=== PATIENT | female | born 1945 | race Caucasian/White ===

== ENCOUNTER 2016-12-23 13:31 | Observation (INO) | payer MEDICARE, OTHER ==
--- NOTE | ~2016-12-23 | HP ---
History And Physical [place] [id number] [facility] [place]. [address] NAME: KING LINDQUIST : 41 STATUS : ADM Phil PAT#: [id number] AGE: 71 ADM/REG DATE : 12/23/16 MR#: [id number] REPORT SERV DATE: 12/23/16 DICTATED BY: ELISA LUONG DATE: 12/23/16 REPORT STATUS : Draft TRANSCRIBED BY: MODNicola DATE: 12/23/16 DATE OF ADMISSION: 12/23/2016 REASON FOR ADMISSION: Chest pain. HISTORY OF PRESENT ILLNESS: This is a 71-year-old white female, who was at Dr. Bowden's office preparing to get her Remicade infusion for rheumatoid arthritis. She was having some left-sided chest pain. It had been going on for two days. It was associated with shortness of breath. There have been no cough, fever, or chills. She does have a longstanding history of atherosclerotic cardiovascular disease. She had a CABG in 2010, had cardiac stenting in September 2015. She was followed by Dr. Layton. She has had no recent evaluation other than echocardiogram for mitral regurgitation. She has had no increasing shortness of breath but she does feel somewhat short of breath and has had some wheezing prior to coming to the emergency room. Her chest pain has been going on for the last two days, a deep aching pain it actually comes and goes. It does not seem to be related to exertion and she does get the pain at rest as well. Sublingual nitroglycerin was not given in the emergency room. She does have Nitrol paste on now. The pain is somewhat better after breathing treatment. The wheezing has abated after the breathing treatment. She is being admitted to observation for evaluation of possible atherosclerotic cardiovascular disease. In the emergency room, she was treated with Solu-Medrol 125 mg, aspirin 81 mg, and the Nitrol paste has just been added as she is being evaluated here. Her troponin level was less than 0.02 and her EKG showed sinus rhythm with diffuse nonspecific ST and T-wave changes with the ST segments grouping in the inferior and lateral leads and low voltage across the precordial leads as well. She is admitted to Dr. Cunningham for observation. PAST MEDICAL HISTORY: She had a spider bite with swelling of her left arm and was found to have MRSA cellulitis from this. She has numerous doctors for the following medical problems: Dr. Miranda for her asthma. Dr. Bowden for her rheumatoid arthritis. Dr. Estuardo Salamnaca for her rosacea and other dermatologic problems. Dr. Main for her irritable bowel syndrome. Dr. Platt for her bowel adhesions. Dr. Layton for her atherosclerotic cardiovascular disease and Dr. Forrest for general medical care. 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 Oshea at [facility] for this. 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 She has had a partial colon resection by Dr. Platt because of the bowel obstruction History And Physical [address] [place]. [address] NAME: KING LINDQUIST : 43 STATUS : ADM Phil PAT#: [id number] AGE: 71 ADM/REG DATE : 12/23/16 MR#: [id number] REPORT SERV DATE: 12/23/16 DICTATED BY: ELISA LUONG DATE: 12/23/16 REPORT STATUS : Draft TRANSCRIBED BY: PHI DATE: 12/23/16 and had recurrent bowel obstructions. Abdominal hysterectomy. Home medications are being identified at this time. She is on Remicade about every six weeks. SOCIAL HISTORY: She is . She grew up in [place]. Lives in [place]. Attends [employer]. She does not smoke cigarettes or take any alcohol. She remarks about her healthy lifestyle and avoidance of health problems in the past and is somewhat concerned that she has had so many health issues having lived so cleanly. FAMILY HISTORY: She has monstrously high cholesterol she says, had 7 brothers and sisters, none of them had any heart disease in the past. Her mother had diabetes and coronary artery disease. Her father had coronary artery disease. She has a sibling with Parkinson's disease and chronic lymphocytic leukemia. REVIEW OF SYSTEMS: She has a deep aching pain in the left anterior chest. No shortness of breath. The patient is not uncomfortable, has no cough, fever, chills, no dysphagia. No melena, hematemesis, fits, seizures, convulsions, nausea, vomiting, or diarrhea. No unilateral weakness. She has no rash at this point. The remainder of the review of systems is negative. PHYSICAL EXAMINATION: GENERAL: White female with artificially darkened hair, in no acute distress, in a raegan indifference to the degree of chest pain has been assumed. VITAL SIGNS: Her blood pressure was 140/70 with a heart rate 70, respiratory rate 16, and afebrile. HEENT: EOMI. Sclerae clear. Conjunctivae pink. NECK: No bruit without any JVD. CHEST: Clear to A and P. HEART: Regular S1, S2 without murmur, gallop, or click. ABDOMEN: Soft. Nontender. Bowel sounds positive. No HSM. EXTREMITIES: Have no edema. Distal pulses are intact in the dorsalis pedis and posterior tibial. NEUROLOGIC: She withdraws to plantar stimulation. Tank Tester is equal and symmetric bilaterally. Coordination intact. She has no tremor. She is symmetric and equal neurologically bilaterally. LYMPHATICS: There is no lymphatics palpable. She has no Raynaud's phenomenon now. She does have good distal pulses. BREASTS: Grossly without mass. Pharynx is clear. LABORATORY DATA: The sodium 141, potassium 3.8, creatinine 0.9, BUN 8, calcium 8.9, and magnesium 2.2. Troponin less than 0.02. Her hemoglobin was 13.3, hematocrit 39.9, platelets were 227,000. White count 84,000. INR 1.0. Portable chest x-ray shows stable appearance of the chest since the prior examination with a history of mini sternotomy but no acute processes radiographically. History And Physical [address] [address] NAME: KING LINDQUIST : 43 STATUS : ADM Phil PAT#: [id number] AGE: 71 ADM/REG DATE : 12/23/16 MR#: [id number] REPORT SERV DATE: 12/23/16 DICTATED BY: ELISA LUONG DATE: 12/23/16 REPORT STATUS : Draft TRANSCRIBED BY: PHI DATE: 12/23/16 Her EKG does have diffuse nonspecific ST and T-wave changes. ASSESSMENT: 1. Chest pain reminiscent to her of the previous angina pectoris prior to the cardiac stenting and prior to her CABG. We will consult Dr. Layton as she is high risk with previous history of ASCVD and failure of the bypass with stenting now approximately 18 months ago. 2. History of asthma, responsive to medications, IV Solu-Medrol, and the patient has cleared her lungs here in the emergency room. 3. 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 4. ASCVD status post CABG. 5. History of MRSA cellulitis of her left arm. 6. Rheumatoid arthritis. 7. History of Raynaud's phenomenon. 8. Irritable bowel syndrome. 9. History of asthma. 10.History of bowel obstruction from adhesions. PLAN: Continue the aerosols. She does not buy her asthma medication because of the expense of them. She has been reluctant to return back to the hospital with chest pain because the last time she was in the hospital, it caused her some blank out of the pocket for her admission and stenting. She blames improper coding for it. We will plan to draw serial troponins. Consider a nuclear medicine stress test versus repeat coronary angiography because of the significant history of atherosclerotic cardiovascular disease. MARIN/PHI Elisa Luong M.D. / [id number] CC: Christian Cunningham Jr, MD Todd A Levin, M.D. Clay Pickard, M.D. Andrew Rittenberry Jr., M.D. Jamari Layton M.D. Shirlene Branch M.D. Fabio Jean Jr., M.D.
--- NOTE | ~2016-12-23 | CN ---
Consultation Report [facility] [address] [place]. [address] NAME: KING LINDQUIST OCHOA : 41 STATUS : ADM Phil PAT#: [id number] AGE: 71 ADM/REG DATE : 12/23/16 MR#: [id number] REPORT SERV DATE: 12/24/16 DICTATED BY: CAITLIN COLE DATE: 12/23/16 REPORT STATUS : Draft TRANSCRIBED BY: MODL DATE: 12/23/16 CARDIOLOGY CONSULT DATE OF CONSULTATION: REFERRING REASON: Chest pain. HISTORY OF PRESENT ILLNESS: This is a pleasant 71 years old white female, well known to Dr. Jamari Layton from [facility] with known CAD and history of two-vessel CABG in 2010 with last coronary arteriogram in 09/2015 with drug-eluting stent into the RCA, but patent RUSS to LAD was identified. She has a history of preserved systolic function. The patient likely has some chronic angina, has been on ranolazine with the dose increased to 1 g twice a day about six months ago. The patient reported that despite that, she continued to have, last three to four months, constant left-sided chest pressure, which is worsening with activity. She also has two to three months of dry cough and shortness of breath. She was admitted to Hospitalist Service. She has been given steroids. Her shortness of breath improved, but she still has intermittent poorly defined left-sided chest pain. Her first enzymes are negative. Electrocardiogram, some nonspecific ST-segment changes. The patient has also seizure disorder, but last seizure was documented in August. She is walking without any support. She has some mild underlying anxiety also. She denies any lower extremity edema, syncope, or other symptoms. REVIEW OF SYSTEMS: The rest of review of systems is negative. PAST MEDICAL HISTORY: 1. Coronary artery disease, history of two-vessel CABG in 2010. 2. SILAS into the RCA placed in 09/2015 with patent RUSS to LAD with preserved systolic function. EF of 70%. 3. Mild carotid artery disease, nonobstructive. 4. Chronic pain. 5. Possible chronic angina. 6. Remote history of TIA. 7. Peripheral artery disease. 8. History of seizure disorder, followed by [facility], with last seizure in 08/2016. SOCIAL HISTORY: The patient is . Denies smoking, drinking alcohol, or using street drugs. FAMILY HISTORY: Negative for sudden cardiac , premature coronary artery disease in family. ALLERGIES: PENICILLIN, SULFA, LISINOPRIL, DIPYRIDAMOLE, CODEINE DOXYCYCLINE, TRAMADOL, Consultation Report [place] [address] [place]. [address] NAME: KING LINDQUIST : 41 STATUS : ADM Phil PAT#: [id number] AGE: 71 ADM/REG DATE : 12/23/16 MR#: [id number] REPORT SERV DATE: 12/24/16 DICTATED BY: CAITLIN COLE DATE: 12/23/16 REPORT STATUS : Draft TRANSCRIBED BY: PHI DATE: 12/23/16 LATEX, TAPENTADOL. HOME MEDICATIONS: Tylenol 1 g twice a day, aspirin 81 mg once a day, Coreg 3.125 mg twice a day, coenzyme Q10, Colace 100 mg twice a day, Estrace 1 mg once a day, Elizabeth as needed, Neurontin 200 mg once a day, Remicade every six weeks, Keppra 750 mg twice a day, multivitamin, nortriptyline 20 mg once a day, Protonix 40 mg once a day, Ranexa 1 g twice a day. PHYSICAL EXAMINATION: GENERAL: No acute distress. VITAL SIGNS: Blood pressure 150/ , heart rate 67 and regular. HEENT - Pupils reactive to light and accommodation. Moist mucosa membrane. NECK: No JVD. Normal carotid upstroke. No carotid bruits. LUNGS: Clear to auscultation bilaterally. Normal inspiratory efforts. COR: Normal S1, S2. No S3 or S4. No significant rub or murmurs. ABD: Soft, nontender, nondistended. EXT: No edema. Pedal pulses strong and equal bilaterally. SKIN: Warm with normal turgor. MS - No kyphosis. NEURO/PSY - Alert and oriented. Nonfocal. DATA: Electrolytes and CBC within normal limits. Chest x-ray, no acute pathology. Troponin x1 is negative. Electrocardiogram revealed normal sinus rhythm 65 beats per minute with nonspecific ST-segment in anterolateral leads. ASSESSMENT AND PLAN: 1. Chest pain of unclear etiology with known coronary artery disease. 2. Possible asthma exacerbation with chronic dyspnea. a. The patient has known coronary artery disease, possible chronic angina with some worsening exertional chest pain over the last several months. So far, there is no evidence of acute coronary syndrome. We will closely follow her cardiac enzymes and electrocardiogram. Likely, she may require nuclear cardiac stress test after she will be seen by Dr. Layton in the morning. We will continue current dose of Ranexa. She has drug-eluting stent into the RCA in 09/2015. Dr. Layton will see the patient in the morning. YEVGENIY/PHI Caitlin Cole M.D. / [id number] Consultation Report [address] [address] NAME: KING LINDQUIST : 41 STATUS : ADM Phil PAT#: [id number] AGE: 71 ADM/REG DATE : 12/23/16 MR#: [id number] REPORT SERV DATE: 12/24/16 DICTATED BY: CAITLIN COLE DATE: 12/23/16 REPORT STATUS : Draft TRANSCRIBED BY: PHI DATE: 12/23/16 CC: Christian Cunningham Jr, MD
--- NOTE | ~2016-12-23 | DS ---
Discharge Summary [facility] [address] [place]. [address] NAME: KING LINDQUIST : 41 STATUS : DIS Phil PAT#: [id number] AGE: 71 ADM/REG DATE : 12/23/16 MR#: [id number] REPORT SERV DATE: 12/25/16 DICTATED BY: JR. CUNNINGHAM WILLIAM JOHN DATE: 12/24/16 REPORT STATUS : Draft TRANSCRIBED BY: PHI DATE: 12/24/16 ADMISSION DATE: 12/23/2016 DISCHARGE DATE: 12/24/2016 DISCHARGE DIAGNOSES: Include: 1. Noncardiac chest pain. 2. Shortness of breath. 3. Asthma exacerbation, mild. 4. Berne autoimmune disease secondary to tick bite. 5. Rheumatoid arthritis with Raynaud phenomenon. 6. Irritable bowel syndrome. 7. History of small-bowel obstruction with secondary adhesions. 8. Fibromyalgia. OPERATIONS, PROCEDURES, AND TREATMENTS: Include: 1. Cardiac catheterization done 12/24/2016 with findings of a single vessel flow limiting coronary artery disease involving the LAD with a patent RUSS to LAD graft. 2. Left circumflex without significant disease. 3. [place] right coronary artery with stents noted from ostia to proximal portion of the vessel, moderate non-flow limiting focal in-stent restenosis within the mid portion stent. 4. Known chronic total occlusion of saphenous vein, the right coronary stent, the [place] RCA stented inpatient. There was normal left ventricular systolic function. Ejection fraction of 60%. 5. Chest x-ray done 12/23/2016, which showed stable appearance of median sternotomy changes. No acute changes. DISCHARGE MEDICATIONS: Include: 1. Aspirin 81 mg orally daily. 2. Lipitor 80 mg orally daily. 3. Coreg 3.125 twice a day. 4. Vitamin D3 of 6000 units daily. 5. CoQ 100 mg orally daily. 6. Remicade infusions. 7. Colace 100 twice a day. 8. Neurontin 200 daily. 9. Keppra 750 twice a day. 10.Multivitamin tablet orally daily. 11.Nortriptyline 20 at the hour of sleep. 12.Protonix 40 daily. 13.Ranexa 1000 mg twice a day. 14.Prednisone 20 mg daily. 15.Combivent two puffs every four hours while awake. 16.Dulera 100/5 two puffs b.i.d. HOSPITAL COURSE: The patient is a 71-year-old female, sent from Dr. Bowden's Discharge Summary [address] [address] NAME: KING LINDQUIST : 41 STATUS : DIS Phil PAT#: [id number] AGE: 71 ADM/REG DATE : 12/23/16 MR#: [id number] REPORT SERV DATE: 12/25/16 DICTATED BY: JR. CUNNINGHAM WILLIAM JOHN DATE: 12/24/16 REPORT STATUS : Draft TRANSCRIBED BY: PHI DATE: 12/24/16 office as she was preparing to get a Remicade infusion, started having left-sided chest pain ongoing for one to two days associated with shortness of breath. No cough, fevers, or chills. She has long-standing history of atherosclerotic disease and had cardiac stenting in [address] Layton. She was sent to the emergency room for further care. Please see Dr. Rich's excellent dictated history and physical for further details. The patient was seen in consultation by Dr. Bowman of Cardiology. Recommendation was to follow cardiac enzymes, which were negative. Unfortunately, her chest pain and shortness of breath were continued. She underwent cardiac catheterization with details as above. No culprit lesion was located. The patient's chest pain had largely resolved by the time I saw her in late afternoon, and she felt she was stable for discharge. The patient did complain of shortness of breath. She said she had trouble with feeling like she got a full breath in. On exam, she had end inspiratory wheezing which was faint. We discussed asthma/COPD as the cause of her feeling of shortness of breath. The patient desired discharge home. She was on room air. Therefore, we added Dulera and increased the short-acting bronchodilator dosage. We will set the patient up for outpatient followup with Pulmonary Medicine, Dr. Owens or Dr. Viera. For discharge exam and laboratory, please see daily progress note. DISCHARGE DIET: Cardiac diet. ACTIVITY: As tolerated. DOMONIQUE/PHI Christian Cunningham Jr, MD / [id number] CC: Christian Cunningham Jr, MD Annesofie Dubeck-Brooks, M.D.
[2016-12-23 12:49] LABS: BASOPHILS 0.2 %; BASOPHILS ABSOLUTE 0.02 10/3/uL (0.0-0.16); EOSINOPHILS 0.9 %; EOSINOPHILS ABSOLUTE 0.08 10/3/uL (0.0-0.53); ER CBC TAT 0 Hrs 05 Mins; HEMATOCRIT 39.9 % (36.0-48.0); HEMOGLOBIN 13.3 g/dL (12.0-16.0); IMMATURE GRANULOCYTES 0.5 %; IMMATURE GRANULOCYTES ABSOLUTE 0.04 10/3/uL (0.0-0.11); LYMPHOCYTES 43.1 %; LYMPHOCYTES ABSOLUTE 3.64 10/3/uL (0.67-4.30); MEAN CORPUS HGB CONC 33.3 g/dL (32.0-36.0); MEAN CORPUSCULAR HEMOGLOB 31.9 pg (26.0-34.0); MEAN PLATELET VOLUME 9.3 fL (9.2-13.0); MONOCYTES 8.6 %; MONOCYTES ABSOLUTE 0.73 10/3/uL (0.21-1.20); NEUTROPHILS 46.7 %; NEUTROPHILS ABSOLUTE 3.93 10/3/uL (2.02-8.40); PLATELET COUNT 227 10/3/uL (150-400); RBC DISTRIBUTION WIDTH 12.9 % (12.0-16.0); RED CELL COUNT 4.17 10/6/uL (4.0-5.6); WHITE BLOOD CELLS 8.4 10/3/uL (4.5-10.5)
[2016-12-23 12:50] LABS: MANUAL DIFF NO %; MEAN CORPUSCULAR VOLUME 95.7 fL (80-100)
[2016-12-23 12:57] LABS: PARTIAL THROMBO TIME 32.2 SEC (22.5-37.2); PROTIME (NOT ORD) 13.5 SEC (12.0-14.5)
[2016-12-23 13:10] LABS: CALCIUM, SERUM 8.9 MG/DL (8.5-10.4); CHEST PAIN PROFILE TAT 0 Hrs 26 Mins; CHLORIDE, SERUM 109 MMOL/L (96-112); CO2 (CARBON DIOXIDE) 24 MMOL/L (24-34); GFR AFRICAN AMERICAN 74 ML/MIN (>=60); GFR NON AFRICAN AMERICAN 63 ML/MIN (>=60); GLUCOSE, SERUM 95 MG/DL (60-99); POTASSIUM, SERUM 3.8 MMOL/L (3.5-5.3); SODIUM, SERUM 141 MMOL/L (135-148); TROPONIN I <0.02 NG/ML (<0.05)
[2016-12-23 13:11] LABS: BUN (BLOOD UREA NITROGEN) 8 MG/DL (6-23)
[~2016-12-23 13:31] MED LIST: ADVAIR100 INH; ADVAIR250 INH; ALLEGRA180 PO; APRISO0.375 GM PO; ASAB PO; BELBUCA; BEN25 PO; BUPRENORPHINE 7.5 MCG TOP; BUTRANS1 EACH TOP; CENTRUM PO; CENTRUM TAB1 TAB PO; CLINDA150 PO; CO Q-10100 MG PO; CO Q-10200 MG PO; COREG3 PO; COZ50 PO; ESTRACE1 MG PO; ESTRADIOL1 MG PO; FISH-EPA1000 MG PO; ISOSORB DIN30 MG PO; KAPIDEX30 MG PO; KEPPRA250 PO; KLONO1 PO; KLOR-CON 1010 MEQ PO; L20 PO; LEVBID PO; LEVSINTAB PO; LIPITOR10 PO; MEDROLPAK4 PO; NEUR100 PO; NOR10 PO; NORCO1 TAB PO; OMEGA PO; OMNICEF300 PO; P5 PO; PLAVIX PO; PR25 PO; PROAIR HFA INH; PROVHFA INH; REMICADE IV; SINGULAIR1 PO; UCERIS9 MG PO; VITAMIN D PO; VITAMIN D31000 UNIT PO; ZANTAC 75 PO; ZYVOXPO PO
[2016-12-23] MEDS ORDERED: RANEXA1000 MG PO (14:31)
[2016-12-23] MEDS ORDERED: KEPPRA750 MG PO (14:32)
[2016-12-23] MEDS ORDERED: PROTONIX PO (14:32)
[2016-12-23] MEDS ORDERED: NOR10 PO (14:41)
[2016-12-23] MEDS ORDERED: NEUR100 PO (14:43)
[2016-12-23] MEDS ORDERED: ACET500CAP PO (14:43)
[2016-12-23] MEDS ORDERED: HALF81 PO (14:43)
[2016-12-23] MEDS ORDERED: THERGRANM PO (14:43)
[2016-12-23] MEDS ORDERED: VITAMIN D31000 UNIT PO (14:44)
[2016-12-23] MEDS ORDERED: ALLEGRA180 PO (14:44)
[2016-12-23] MEDS ORDERED: CO Q-10100 MG PO (14:44)
[2016-12-23] MEDS ORDERED: REMICADE IV (14:46)
[2016-12-23] MEDS ORDERED: DSS PO (14:46)
[2016-12-23] MEDS ORDERED: COREG3 PO (14:46)
[2016-12-23] MEDS ORDERED: ESTRACE1 MG PO (14:47)
[2016-12-24 10:15] LABS: BASOPHILS 0.1 %; BASOPHILS ABSOLUTE 0.01 10/3/uL (0.0-0.16); EOSINOPHILS 0 %; HEMATOCRIT 37.5 % (36.0-48.0); HEMOGLOBIN 12.9 g/dL (12.0-16.0); IMMATURE GRANULOCYTES 0.6 %; IMMATURE GRANULOCYTES ABSOLUTE 0.08 10/3/uL (0.0-0.11); LYMPHOCYTES 12.1 %; LYMPHOCYTES ABSOLUTE 1.71 10/3/uL (0.67-4.30); MEAN CORPUS HGB CONC 34.4 g/dL (32.0-36.0); MEAN CORPUSCULAR HEMOGLOB 32.2 pg (26.0-34.0); MEAN CORPUSCULAR VOLUME 93.5 fL (80-100); MEAN PLATELET VOLUME 10.3 fL (9.2-13.0); MONOCYTES 5.9 %; MONOCYTES ABSOLUTE 0.83 10/3/uL (0.21-1.20); NEUTROPHILS 81.3 %; NEUTROPHILS ABSOLUTE 11.48 10/3/uL (2.02-8.40); PLATELET COUNT 239 10/3/uL (150-400); RED CELL COUNT 4.01 10/6/uL (4.0-5.6); WHITE BLOOD CELLS 14.1 10/3/uL (4.5-10.5)
[2016-12-24 10:16] LABS: MANUAL DIFF NO %
[2016-12-24 10:29] LABS: CHLORIDE, SERUM 106 MMOL/L (96-112); CO2 (CARBON DIOXIDE) 26 MMOL/L (24-34); GFR AFRICAN AMERICAN 74 ML/MIN (>=60); GFR NON AFRICAN AMERICAN 63 ML/MIN (>=60); GLUCOSE, SERUM 105 MG/DL (60-99); INTERNATIONAL NORMAL RATI 1.1 UNITS (-); POTASSIUM, SERUM 4.1 MMOL/L (3.5-5.3); PROTIME (NOT ORD) 13.6 SEC (12.0-14.5); SODIUM, SERUM 143 MMOL/L (135-148); TRIGLYCERIDE 165 MG/DL (< 150)
[2016-12-24 10:30] LABS: BUN (BLOOD UREA NITROGEN) 17 MG/DL (6-23); CHOL/HDL RATIO(NOT ORDER) 3.7 (0-5); CHOLESTEROL 307 MG/DL (< 200); HDL CHOLESTEROL 82 MG/DL (> 49); LDL CHOLESTEROL 192 MG/DL (< 130); NON-HDL CHOLESTEROL 225 MG/DL (< 160)
[2016-12-24] MEDS ORDERED: COMBIVENT RESPIM4 GM INH (17:37)
[2016-12-24] MEDS ORDERED: DULERA 100 MCG/13 GM INH (17:38)
[2016-12-24] MEDS ORDERED: LIPITOR80 MG PO (17:40)
[2016-12-24] MEDS ORDERED: P20 PO (19:11)
== END 2016-12-24 19:37 | disposition home or self-care (01) ==
LOC: ER 13:31 → CDU1 15:20
PROVIDERS: Emergency Medicine; Internal Medicine Cardiovascular Disease
DX: I25.110 Atherosclerotic heart disease of native coronary artery with unstable angina pectoris (principal); I24.9 Acute ischemic heart disease, unspecified; J45.901 Unspecified asthma with (acute) exacerbation; M06.9 Rheumatoid arthritis, unspecified; I10 Essential (primary) hypertension; K21.9 Gastro-esophageal reflux disease without esophagitis; K58.9 Irritable bowel syndrome, unspecified; M79.7 Fibromyalgia; Z90.710 Acquired absence of both cervix and uterus; Z79.899 Other long term (current) drug therapy
CPT/HCPCS: 71010; 80048; 80061; 83735; 84484; 85025; 85610; 85730; 93005; 93459; 94640; 96372; 96374; 99152; 99153; 99285; A9270-GY; C1760; C1769; G0378; J2250; J2930; J3010; Q9967